=== PATIENT | female | born 1945 | race Hispanic/Latino ===

== ENCOUNTER 2019-03-14 07:40 | Inpatient (IN) | payer OTHER ==
[~2019-03-14] VITALS: Ht 160 cm; Wt 70.3 kg
[2019-03-14] MEDS ORDERED: SODIUM CHLORIDE 0.9% 1000ML 1,000 ML IV ONE ×3 (08:32→13:06)
[2019-03-14] MEDS ORDERED: ONDANSETRON HCL 4 MG/2 ML VIAL ONE (08:32)
[2019-03-14 08:39] LABS: BASOPHILS % (AUTO) 0.4 % (0.0-5.0); EOSINOPHILS % (AUTO) 0.2 % (0.0-8.0); HEMATOCRIT 38.4 % (36-48); LYMPHOCYTES % (AUTO) 9.8 % (21.0-51.0); MEAN CORPUSCULAR VOLUME 85.2 fL (79-99); MONOCYTES % (AUTO) 4.7 % (3.0-13.0); NEUTROPHILS % (AUTO) 84.9 % (40.0-77.0); PLATELET COUNT (AUTO) 415 K/uL (130-400); RED BLOOD CELL COUNT(AUTO) 4.51 MIL/uL (4.00-5.50); RED CELL DISTRIBUTION WIDTH 13.4 % (11.0-15.5); WHITE BLOOD COUNT (AUTO) 18.2 K/uL (4.8-10.8)
[2019-03-14 08:45] LABS: CREATININE 0.9 mg/dL (0.5-1.5); POTASSIUM 3.5 mmol/L (3.5-5.1)
[2019-03-14 08:51] LABS: ALBUMIN 3.4 g/dL (3.5-5.0); TOTAL PROTEIN, SERUM 7.8 g/dL (6.0-8.3)
[2019-03-14 08:52] LABS: APPEARANCE,URINE Cloudy (CLEAR); BILIRUBIN,URINE Negative (NEGATIVE); COLOR,URINE Dark Yellow (YELLOW); GLUCOSE, URINE (UA) Negative (NEGATIVE); KETONES,URINE Trace mg/dL (NEGATIVE); LEUKOCYTE ESTERASE ,URINE Small (NEGATIVE); NITRATE,URINE Negative (NEGATIVE); OCCULT BLOOD,URINE Moderate (NEGATIVE); PROTEIN,URINE Trace mg/dL (NEGATIVE)
[2019-03-14 09:24] LABS: BACTERIA,URINE Many /HPF (None Seen); MUCUS,URINE Few LPF (None Seen); RBC,URINE 0-1 /HPF (0-1); SQUAMOUS EPITHELIAL CELL,UR Few /HPF (0-2); WBC,URINE 26-50 /HPF (0-1)
[2019-03-14] MEDS ORDERED: LEVOFLOXACIN 750 MG/D5W 150 ML 150 ML ONE (10:16)
[2019-03-14] MEDS ORDERED: ONDANSETRON HCL 4 MG/2 ML VIAL IV PRN (11:45)
[2019-03-14] MEDS ORDERED: ACETAMINOPHEN 325 MG TAB PO PRN (11:45)
[2019-03-14] MEDS: METRONIDAZOLE 500MG/100ML BAG 100 ML IV SCH ×2 (11:45→20:36)
[2019-03-14] MEDS ORDERED: METRONIDAZOLE 500MG/100ML BAG 100 ML ONE (13:06)
[2019-03-14 16:00] VITALS: BP 115/57
[2019-03-14] MEDS ORDERED: DEXTROSE 50%-WATER 50 ML DISP.SYRIN IV PRN (17:00)
[2019-03-14] MEDS ORDERED: GLUCAGON 1MG KIT 1 MG ML IM PRN (17:00)
[2019-03-14 19:00] VITALS: BP 129/62
[2019-03-14] MEDS: INSULIN HUMULIN R 100 UNIT/ML 3ML SQ SCH (20:31)
[2019-03-14] MEDS: FAMOTIDINE/PF 20 MG/2 ML VIAL IV SCH (20:36)
[2019-03-14] MEDS: SODIUM CHLORIDE 0.9% 1000ML 1,000 ML IV SCH (21:41)
[2019-03-15] VITALS: BP 136/77
[2019-03-15 04:00] VITALS: BP 126/63
[2019-03-15] MEDS: SODIUM CHLORIDE 0.9% 1000ML 1,000 ML IV SCH ×2 (04:37→14:57)
[2019-03-15] MEDS: METRONIDAZOLE 500MG/100ML BAG 100 ML IV SCH ×3 (04:37→20:23)
[2019-03-15 05:09] LABS: BASOPHILS % (AUTO) 0.3 % (0.0-5.0); EOSINOPHILS % (AUTO) 1.9 % (0.0-8.0); HEMATOCRIT 29.4 % (36-48); MEAN CORPUSCULAR HEMOGLOBIN 29.7 pg (27.0-33.0); MEAN CORPUSCULAR HGB CONC 34.4 g/dL (32.0-36.0); MEAN CORPUSCULAR VOLUME 86.3 fL (79-99); MONOCYTES % (AUTO) 8.8 % (3.0-13.0); PLATELET COUNT (AUTO) 271 K/uL (130-400); RED BLOOD CELL COUNT(AUTO) 3.41 MIL/uL (4.00-5.50); RED CELL DISTRIBUTION WIDTH 13.4 % (11.0-15.5); WHITE BLOOD COUNT (AUTO) 10.1 K/uL (4.8-10.8)
[2019-03-15 05:34] LABS: CREATININE 0.6 mg/dL (0.5-1.5)
[2019-03-15 05:36] LABS: POTASSIUM 2.7 mmol/L (3.5-5.1)
[2019-03-15] MEDS ORDERED: LIDOCAINE HCL-MPF 1% 2ML VIAL IV PRN (05:45)
[2019-03-15] MEDS: POTASSIUM CHLORIDE 20MEQ/100ML 100 ML IV PRN (06:33)
[2019-03-15] MEDS: INSULIN HUMULIN R 100 UNIT/ML 3ML SQ SCH ×4 (06:33→20:44)
[2019-03-15 07:47] VITALS: BP 122/44
[2019-03-15] MEDS: FAMOTIDINE/PF 20 MG/2 ML VIAL IV SCH ×2 (08:21→20:23)
[2019-03-15] MEDS: ENOXAPARIN SODIUM 40 MG/0.4 ML SYRINGE SQ SCH (08:22)
[2019-03-15] MEDS: LEVOFLOXACIN 500 MG/D5W 100 ML 100 ML IV SCH (08:28)
[2019-03-15 11:34] VITALS: BP 143/91
[2019-03-15] MEDS ORDERED: POTASSIUM CHLORIDE 20MEQ/100ML 100 ML IV PRN (14:15)
[2019-03-15] MEDS ORDERED: POTASSIUM CHLORIDE 10% ELIXIR 20 MEQ/15 ML UDCUP PO SCH (14:15)
[2019-03-15 16:39] VITALS: BP 136/75
--- NOTE | 2019-03-15 17:45 | NUR ---
INITIAL- NOTE FOR CM FOR AM MET W PATIENT. PT FIRST EXCLAIMED LOUDLY THAT CM HAS STARTLED HER BY KNOCKING AND ASKING TO COME INTO THE ROOM AND THAT CM MYUST NEVER DO THAT TO A PATIENT WITH A HEART CONDITION CM COULD CAUSE A HEART ATTACK, APOLOGISED AND ADVISED PT THAT CM HAD A FEW QUESTIONS . PT AGREED TO IA. DURING THIA PT WOULD PUT A FINGER UP AND STOP TALKING FOR A MINUTE OR TWO ; CM NEEDED TO WAIT TO CONTINUE THE IA. AFFECT WAS VERY CHANGEABLE DURING THIS CONVERSATION. PT LIVES ALONE, IS A , HOME IS SAFE AND ACCESSIBLE, PT HAD MULTIPLE DME, HAS NO HELP AT HOME WANTS NO HELP AT HOME AND IS NOT HANDICAPPE DIN ANY WAY BUT SOMETIME TAKE A WALK TO ANSWER THE DOOR BECAUSE IT MAKES HER FEEL SAFER. DCP IS HOME PT IS IN [facility], SEARCHING FOR A NEW ONE WAS SUPPOSED TO HAVE A WELL WOMAN CHECK UP IN THE MORNING, BUT IS IN HOSPITAL AND WOULD LIKE TO HAVE CM RESTAURANT KITCHEN MANAGER CALL [facility] TO RESCHEDULE ANOTHER APPOINTMENT.WILL ADD TO NOTE TO ENDORSE TO RN OR CM FOR TOMORROW Addendum: 03/15/19 at 2141 by CHARLES ELIZABETH RN CM Amended: Links added.
[2019-03-15 20:00] VITALS: BP 124/45
[2019-03-16] VITALS (7 sets, daily range): BP systolic 119–154; BP diastolic 53–76
[2019-03-16 04:39] LABS: BASOPHILS % (AUTO) 0.5 % (0.0-5.0); EOSINOPHILS % (AUTO) 2.1 % (0.0-8.0); HEMATOCRIT 29.5 % (36-48); LYMPHOCYTES % (AUTO) 35.7 % (21.0-51.0); MEAN CORPUSCULAR HEMOGLOBIN 29.4 pg (27.0-33.0); MEAN CORPUSCULAR HGB CONC 34.4 g/dL (32.0-36.0); MEAN CORPUSCULAR VOLUME 85.4 fL (79-99); NEUTROPHILS % (AUTO) 52.7 % (40.0-77.0); PLATELET COUNT (AUTO) 298 K/uL (130-400); RED BLOOD CELL COUNT(AUTO) 3.45 MIL/uL (4.00-5.50); RED CELL DISTRIBUTION WIDTH 13.3 % (11.0-15.5); WHITE BLOOD COUNT (AUTO) 9.3 K/uL (4.8-10.8)
[2019-03-16 05:03] LABS: CREATININE 0.7 mg/dL (0.5-1.5); MAGNESIUM 1.3 mg/dL (1.80-2.40)
[2019-03-16] MEDS: INSULIN HUMULIN R 100 UNIT/ML 3ML SQ SCH ×4 (05:19→21:00)
[2019-03-16] MEDS: METRONIDAZOLE 500MG/100ML BAG 100 ML IV SCH ×3 (05:20→21:07)
[2019-03-16] MEDS: SODIUM CHLORIDE 0.9% 1000ML 1,000 ML IV SCH (05:20)
[2019-03-16] MEDS ORDERED: POTASSIUM CHLORIDE 10% ELIXIR 20 MEQ/15 ML UDCUP PO SCH ×2 (07:45→16:00)
[2019-03-16] MEDS: FAMOTIDINE/PF 20 MG/2 ML VIAL IV SCH (10:34)
[2019-03-16] MEDS: LEVOFLOXACIN 500 MG/D5W 100 ML 100 ML IV SCH (10:35)
[2019-03-16] MEDS: ENOXAPARIN SODIUM 40 MG/0.4 ML SYRINGE SQ SCH (10:35)
[2019-03-16] MEDS ORDERED: POTASSIUM CHLORIDE 20 MEQ ERTAB PO SCH (12:15)
[2019-03-16] MEDS: MAGNESIUM 2GM PREMIX 50ML 50 ML IV PRN (13:04)
[2019-03-16] MEDS ORDERED: POTASSIUM CHLORIDE 10% ELIXIR 20 MEQ/15 ML UDCUP PO PRN (16:45)
[2019-03-16] MEDS ORDERED: POTASSIUM CHLORIDE 20MEQ/100ML 100 ML IV PRN (16:45)
[2019-03-16] MEDS ORDERED: LIDOCAINE HCL-MPF 1% 2ML VIAL IV PRN (16:45)
[2019-03-16] MEDS: POTASSIUM CHLORIDE 20MEQ/100ML 100 ML IV PRN (16:58)
[2019-03-16] MEDS: FAMOTIDINE 20MG TAB 20 MG TAB PO SCH (21:07)
[2019-03-16] MEDS: POTASSIUM CHLORIDE 20 MEQ ERTAB PO PRN (21:08)
[2019-03-17] MEDS: POTASSIUM CHLORIDE 20 MEQ ERTAB PO PRN ×3 (02:29→13:38)
[2019-03-17 02:55] VITALS: BP 165/76
[2019-03-17] MEDS: METRONIDAZOLE 500MG/100ML BAG 100 ML IV SCH ×2 (05:01→11:45)
[2019-03-17] MEDS: INSULIN HUMULIN R 100 UNIT/ML 3ML SQ SCH ×2 (05:04→11:55)
[2019-03-17 05:08] LABS: BASOPHILS % (AUTO) 0.3 % (0.0-5.0); EOSINOPHILS % (AUTO) 2.7 % (0.0-8.0); HEMATOCRIT 30.7 % (36-48); MEAN CORPUSCULAR HEMOGLOBIN 29.7 pg (27.0-33.0); MEAN CORPUSCULAR HGB CONC 34.6 g/dL (32.0-36.0); MEAN CORPUSCULAR VOLUME 85.9 fL (79-99); MONOCYTES % (AUTO) 10.5 % (3.0-13.0); NEUTROPHILS % (AUTO) 57.5 % (40.0-77.0); PLATELET COUNT (AUTO) 297 K/uL (130-400); RED BLOOD CELL COUNT(AUTO) 3.57 MIL/uL (4.00-5.50); RED CELL DISTRIBUTION WIDTH 13.5 % (11.0-15.5); WHITE BLOOD COUNT (AUTO) 9.4 K/uL (4.8-10.8)
[2019-03-17 05:14] LABS: CREATININE 0.7 mg/dL (0.5-1.5); POTASSIUM 3.3 mmol/L (3.5-5.1)
[2019-03-17 07:54] VITALS: BP 119/51
[2019-03-17] MEDS: ENOXAPARIN SODIUM 40 MG/0.4 ML SYRINGE SQ SCH (10:25)
[2019-03-17] MEDS: MAGNESIUM 2GM PREMIX 50ML 50 ML IV PRN (10:25)
[2019-03-17] MEDS: LEVOFLOXACIN 500 MG/D5W 100 ML 100 ML IV SCH (10:25)
[2019-03-17] MEDS: FAMOTIDINE 20MG TAB 20 MG TAB PO SCH (10:27)
[2019-03-17 11:41] VITALS: BP 169/62
[2019-03-17] MEDS ORDERED: MAGNESIUM 2GM PREMIX 50ML 50 ML IV PRN (12:15)
[2019-03-17] MEDS ORDERED: POTASSIUM CHLORIDE 10% ELIXIR 20 MEQ/15 ML UDCUP PO SCH (12:15)
[2019-03-17] MEDS ORDERED: MAGNESIUM OXIDE 400 MG TABLET PO SCH ×2 (12:15→13:30)
[2019-03-17] MEDS ORDERED: LEVO500T89 PO (12:20)
[2019-03-17] MEDS ORDERED: MAGNESIUM OXIDE 400 MG TABLET PO ONE (13:29)
--- NOTE | 2019-03-17 13:30 | NUR ---
Patient informed of discharge Patient informed that hospitalist has placed discharge order. Patient asked to contact family or friend that could pick her up and patient replied she would contact a someone to pick her up. Informed patient that hospitalist also ordered magnesium oxide 400mg PO once and that I would give last dose of potassium 20 MEQ tablet. I gave both tablets to patient in a medicine cup and patient replied she would take one now and wait several minutes to take the other pill with a snack to prevent upset stomach. I gave patient applesauce to take with the pills.
--- NOTE | 2019-03-17 13:50 | NUR ---
PRESCRIPTION/PHARMACY NEW RX AT DISCHARGE HAS BEEN SENT ELECTRONICALLY TO PATIENTS PREFERRED PHARMACY "[facility]" IN [place], [place] [phone]. BUT THIS PHARMACY IS CLOSED ON SATURDAYS AND SUNDAYS. I ASKED PATIENT FOR AN ALTERNATE PHARMACY, OPEN ON S AND I WOULD CALL IN RX TO PHARMACY OF HER CHOICE. PATIENT CHOSE [facility] IN [place], [place]. I CALLED IN NEW RX (LEVOFLOXACIN 500MG PO DAILY X5 DAYS) TO [facility] IN [place], [place] [phone] AND IS OPEN TUESDAY AND SUNDAYS.
--- NOTE | 2019-03-17 14:15 | NUR ---
FLU VACCINE PATIENT DOES TELL ME SHE HAS NOT RECEIVED FLU VACCIN THIS SEASON AND REQUESTS TO RECEIVE FLU VACCINE TODAY PRIOR TO DISCHARGE. Addendum: 03/17/19 at 1658 by SAMANTHA GRAY RN RN At this time, I noticed magnesium tablet was in medicine cup at patient bedside. I reminded patient to please take the magnesium tablet or if patient does not want to take the magnesium pill, to let me know so I can dispose of it. And patient replied "I am going to take it, leave it. I am just waiting to make sure I don't get an upset stomach." Left patient room to place orders for flu vaccine.
[2019-03-17] MEDS ORDERED: FLU VACC QS2019-20 36MOS UP/PF 60 MCG/0.5 ML ML IM ONE (14:30)
--- NOTE | 2019-03-17 15:00 | NUR ---
Discharge Discharge teaching provided to patient regarding rx (levofloxacin), UTI, need to schedule f/u with PCP. Informed patient rx was called in [facility] pharmacy in [place], [place]. Patient verbalized understanding of discharge teaching Removed 24G IV from right FA, catheter tip intact. Administered flu vaccine to right deltoid. Patient told me she called a friend to pick her up and should arrive around 4:00 pm or 4:30pm. Addendum: 03/17/19 at 1652 by SAMANTHA GRAY RN RN Time spent explaining discharge teaching was approximately 45 minutes. Patient would requested list of foods with potassium, so I provided information with discharge packet.
--- NOTE | 2019-03-17 16:15 | NUR ---
Patient complaint Noticed patient still in room after I returned to floor from my lunch break. Patient asked "What is this pill?" and I replied "Ma'am, that is your magnesium tablet. Remember, I had told you various times to please take your magnesium pill and you replied to me that you would take it?" Patient told me "Well I don't remember ever taking this before." and I replied to patient "Today is the first time the doctor ordered this tablet. If you don't want to take it, you have every right to refuse. Can I please get the pill to dispose of it?" and patients replied "Well, I'll take it if I need it. But what did the nurse give me last night?". It appears as if patient is delaying her discharge and attempting to change the topic. But I replied to patient "The nurse last night gave you only potassium pills." Patient appears upset. I explained situation to charge nurse NIESHA Garcia and asked to please speak to patient.
--- NOTE | 2019-03-17 16:30 | NUR ---
I was reported by Karlee that she wanted me to talk to pt because she has been discharged since 3 pm and she seems not wanting to go home and asking the same question over and over about the medication she received earlier which Karlee keeps telling her is potassium and magnesium and that she is claiming that she already called her ride but no one is showing up to pick her up. I walked into pt's room and introduce myself, I asked her if she needed help calling someone to pick her up and she said that her friend Giovana will pick her up but she will not call her until she is ready to leave and that she will not leave until she writes an ugly wow card saying all the bad experience she has had here in the hospital and that we always seem to be in a becerra for everything and she doesn't understand what is the becerra in kicking her out of the hospital. She went on saying that she has been asking what kind of pill was the one she got medicated with earlier and she has not received an answer, I explained to her that she received the magnesium and potassium as per the physician instructions before discharge. I told her that the reason why i was here is to find out if she needed help with transportation if not so that I can can escalate it and get her the appropriate help to safely discharge her home and when I try to talk more with her she said to get out of her room because I sounded that I had some type of authority and doesn't care who I am and that she is not leaving until she feels she ready to leave. Reported to Celestina jacksonresort housekeeper
--- NOTE | 2019-03-17 17:15 | NUR ---
PATIENT REPORT CLERK ANALYST DAINA SPOKE TO PATIENT FOR APPROXIMATELY 45 MINUTES, THEN I WAS INFORMED BY DAINA THAT PATIENT WAS REQUESTING TO SPEAK TO ME ABOUT MEDICATIONS. DAINA ALSO TOLD ME THAT PATIENT HAS CALLED A FRIEND TO PICK HER UP FROM HOSPITAL. PATIENT TOLD ME "I JUST WANT TO KNOW WHAT PILLS THE NIGHT NURSE WAS GIVING ME LAST NIGHT." I LOOKED AT EMAR HISTORY WHILE IN PATIENTS ROOM AND TOLD HER THAT POTASSIUM AND PEPCID PILLS WERE GIVEN. AND PATIENT REPLIED "OH, PEPCID! NOW I REMEMBER. I JUST WANTED TO KNOW WHAT I WAS GIVEN LAST NIGHT." PATIENT CONTINUED TO SAY "I JUST DON'T SEE WHY YOUR "BOSSES" HAD TO COME IN TO TALK TO ME." PATIENT APPEARS TO BE EXHIBITING MANIPULATIVE BEHAVIOR SHE DENIES TELLING [facility] SHE WAS NOT LEAVING HOSPITAL AFTER DISCHARGE. I APOLOGIZED TO PATIENT FOR ANY MISUNDERSTANDING DURING DISCHARGE TEACHING. PATIENT THEN STATED "I DON'T SEE WHAT IS THE BIG SCHULTE TO GET A PATIENT OUT OF HERE AFTER DISCHARGE. I THINK IT'S RUDE TO TRY TO GET ME TO LEAVE THE HOSPITAL QUICKLY. WHAT'S THE SCHULTE? WE ARE ALL GOING TO EVENTUALLY." I EXPLAINED TO PATIENT THAT WE UNDERSTAND IF THERE IS A DELAY IN WAITING FOR HER RIDE TO PICK HER UP AND I AM NOT GOING TO FORCE HER TO LEAVE IF HER RIDE HAS NOT ARRIVED YET. I CONTINUE TO EXPLAIN THAT SHE COULD HAVE LET ME KNOW EARLIER IF THERE ARE ANY PROBLEMS REGARDING CONTACTING A RIDE TO PICK HER UP. PATIENT THEN STATED "WELL TO BE HONEST, I JUST WANTED TO HAVE DINNER HERE BEFORE I LEFT. THAT WHY MY RIDE COULD JUST PICK ME UP AND TAKE ME STRAIGHT HOME. I ALREADY CALLED MY FRIEND TO PICK ME UP AND SHE IS ON HER WAY." I TOLD PATIENT TO PLEASE USE CALL LIGHT TO INFORM US WHEN HER RIDE ARRIVES.
== END 2019-03-17 17:56 | disposition home or self-care (01) | DRG 872 ==
LOC: EDH 07:40 → EDHIP 07:41 → 4BH 15:46
PROVIDERS: ADMIT Internal Medicine; ATTEND Internal Medicine
DX: A41.9 Sepsis, unspecified organism (principal); N39.0 Urinary tract infection, site not specified; K56.609 Unspecified intestinal obstruction, unspecified as to partial versus complete obstruction; I25.10 Atherosclerotic heart disease of native coronary artery without angina pectoris; I10 Essential (primary) hypertension; E78.5 Hyperlipidemia, unspecified; E83.42 Hypomagnesemia; E03.9 Hypothyroidism, unspecified; E11.65 Type 2 diabetes mellitus with hyperglycemia; E87.6 Hypokalemia; E66.9 Obesity, unspecified; A05.9 Bacterial foodborne intoxication, unspecified; N20.0 Calculus of kidney; B96.20 Unspecified Escherichia coli [E. coli] as the cause of diseases classified elsewhere; Z23 Encounter for immunization; Z90.49 Acquired absence of other specified parts of digestive tract; Z85.828 Personal history of other malignant neoplasm of skin; Z90.710 Acquired absence of both cervix and uterus; Z68.27 Body mass index [BMI] 27.0-27.9, adult; K52.9 Noninfective gastroenteritis and colitis, unspecified
CPT/HCPCS: 36415; 74176; 80048; 80053; 81001; 82948; 83605; 83690; 83735; 85025; 87040; 87077; 87088; 87186; 87507; 97039; 99291; G0378; J1650; J1956; J2405; J3475; J3480; J3490; J7030; Q2035

== ENCOUNTER → 2020-08-29 | Outpatient (CLI) | payer MEDICARE ==
[~2020-08-29] MED LIST: LEVO500T89 PO
== END | disposition home or self-care (01) ==
LOC: RAH 13:40
PROVIDERS: ATTEND Family Medicine
DX: I73.9 Peripheral vascular disease, unspecified (principal); R60.9 Edema, unspecified
CPT/HCPCS: 93925